=== PATIENT | female | born 1980 | race Caucasian/White ===

== ENCOUNTER 2017-01-12 19:37 | Emergency (ER) | payer OTHER ==
--- NOTE | 2017-01-12 20:42 | DIAGNOSTIC IMAGING REPORT ---
PROCEDURE: XR CHEST 1 VIEW INDICATION: CHEST PAIN TECHNIQUE: Single view chest. 2030 hours COMPARISON: None. FINDINGS: The cardiomediastinal contour and central vasculature are normal. The lungs are clear without focal consolidation, pleural effusion or pneumothorax. The osseous structures are intact. IMPRESSION: 1. No evidence of acute cardiopulmonary disease.
--- NOTE | 2017-01-12 22:15 | ED NURSING NOTES ---
Clinical Report - Nurses [facility] [place] [address] 01/12/2017 19:38 [id number] Triage time 19:45 Damion 2016. Acuity: LEVEL 3. Chief Complaint: CHEST PAIN. Alert. SEPSIS SCREEN: Sepsis Screen. Negative (no infection suspected/documented). RADHA COMA SCORE: [place] Coma Scale: 15- eyes open spontaneously (4); best verbal response- oriented x 4 (5); best motor response- obeys commands (6). --19:57 Rogerio Verma R.N. 19:46 01/12/17. BP: 131/78. HR: 97. RR: 16. O2 saturation: 99% on room air. Temp: 98.1 F. Pain level now: 6. --19:57 Rogerio Verma R.N. Weight: 69.8 kg stated. Height/Length: 62 inches Per Patient. BMI: 28.2. --19:47 Rogerio Verma R.N. Medications Theresa . --19:54 Rogerio Verma R.N. Allergies No Known Drug Allergy. --04:54 Rogerio Verma R.N. History Arrived by private vehicle. Historian: patient. Accompanied by friend. Primary physician (Cristina). ( Chest Pain 6/10 along the diaphragm. Pt states that her pain was 9/10 about 1 hour ago.). This started just prior to arrival and today. She has had difficulty breathing and nausea. Treatment MEDICAL CLAIMS PROCESSOR: None. PAST MEDICAL HX: Negative. Immunizations: status is unknown. Last normal menstrual period- about 9 years ago--pt has Theresa. Denies current . SURGERY HX: ( Gastric sleeve ~ 4 months ago). SOCIAL HX: Former smoker, end date 2011. Alcohol use; consumes wine weekly. No drug use. ABUSE ASSESSMENT: No report of abuse. FALL RISK ASSESSMENT: Fall risk assessment completed. No fall risk identified. NUTRITIONAL RISK ASSESSMENT: The nutritional risk assessment revealed no deficiencies. FUNCTIONAL ASSESSMENT: Functional assessment: no impairments noted. LEARNING NEEDS ASSESSMENT: The learning needs assessment revealed no barriers. SKIN INTEGRITY ASSESSMENT: Skin integrity risk assessment completed. No skin integrity risk identified. --19:57 Rogerio Verma R.N. PROBLEMS: no known problems. Interventions ID band on patient. To treatment room. --19:57 Rogerio Verma R.N. PHYSICAL ASSESSMENT Ambulatory to room. GENERAL / NEURO / PSYCH: Alert. Oriented X 4. Appears in pain. HEENT: Mucous membranes are pink. RESPIRATORY: Respirations not labored. Decreased breath sounds in the right upper lung posteriorly. CVS: Normal sinus rhythm noted. GI / : Abdomen soft. EXTREMITIES: No lower extremity edema. SKIN: Skin is warm and dry. Normal skin turgor. Skin is non-tender. --19:58 Rogerio Verma R.N. NURSING PROGRESS NOTES manager law, pulse oximeter and NIBP monitor placed on patient; improvement spec- Lead II and V1; monitor alarms on. Patient gowned. Reassurance given to the patient and patient's friends. Patient ready for evaluation- chart flagged and ED physician notified. --19:59 Rogerio Verma R.N. 19:50 01/12/2017 Site #1 started via IV in the left antecubital space with an 20g angiocath, with aseptic technique and good blood return; one attempt. Blood drawn: rainbow set. Labeled in the presence of the patient and sent to the lab. Saline lock flushed with 10 mL saline (start by ELAINE Zavala). --20:00 Rogerio Verma R.N. 20:04 01/12/2017 Aspirin PO Tablets 325 mg given. Allergies verified and confirmed 5 rights. --20:04 Rogerio Verma R.N. 20:04 01/12/2017 Nitroglycerin SL Tablets 0.4 mg given. Allergies verified and confirmed 5 rights. --20:04 Rogerio Verma R.N. Oxygen administered by nasal cannula at 2 liters. --20:20 Rogerio Verma R.N. ( Pt states only slight soreness presently so 2nd NTG SL held). --20:23 Rogerio Verma R.N. 20:24 01/12/17. BP: 109/60. HR: 74. RR: 16. O2 saturation: 100% on nasal cannula at 2 liters/minute. Pain level now: 08/23. --20:24 Rogerio Verma R.N. 22:23 01/12/2017 Site #1 removed upon discharge. Catheter intact. Manual pressure, bandaid and bandage applied. --04:53 Rogerio Verma R.N. DISPOSITION / DISCHARGE Departure time: 0. --04:43 Rogerio Verma R.N. 22:25 01/12/17. BP: 114/77. HR: 74. RR: 18. O2 saturation: 100% on room air. Temp: 98.3 F (oral). Pain level now: . --04:47 Rogerio Verma R.N. 22:30. Condition at departure: improved. No learning barriers present. Discharge instructions provided and reviewed with the patient. Reviewed medication(s) (continue your usually prescribed medications). Reviewed referral to family practice. Patient verbalized understanding. Written instructions provided in [place]. The patient was discharged by the physician. She was discharged home and accompanied by heating mechanic. She left the Emergency Department ambulatory and via private vehicle. Director Social Service driving. --04:50 Rogerio Verma R.N. Locked/Released at 01/13/2017 4:54 by Rogerio Verma R.N.
--- NOTE | 2017-01-12 22:15 | ED ORDER SUMMARY ---
..... Patient: MIKE CHAHAL OrderSheet [facility] VisitID: [id number] [place] [address] 36y, F Registration Date/Time: 01/12/2017 ORDER SHEET Weight: 69.8 kg (stated) Allergies: No Known Drug Allergy GENERAL ORDERS: Chest 1V Urgent (19:56 01/12/2017 Denisa CONNOLLY) (Ack 20:02 LMuller) (4:50 omanelli R.N.) Care Team Coordinator Scheduler (Continuous) (19:56 01/12/2017 Denisa CONNOLLY) (20:00 Kendra R.N.) Cardiac Panel Stat (:56 01/12/2017 Denisa CONNOLLY) (20:00 Kendra R.N.) BNP Urgent (19:56 01/12/2017 Denisa CONNOLLY) (20:00 Kendra R.N.) Oxygen (2 L/min) (NC) (:56 01/12/2017 Denisa CONNOLLY) (20:00 omansandy R.N.) Pulse oximeter (:56 01/12/2017 Denisa CONNOLLY) (20:00 Kendra R.N.) EKG - ER Stat (:56 01/12/2017 Denisa CONNOLLY) (20:00 Kendra R.N.) Chest 1V Urgent (19:57 01/12/2017 Denisa CONNOLLY) (19:59 omansandy R.N.) (Cancelled: Duplicate Order19:59 Kendra R.N.) MEDICATION ORDERS: Aspirin PO 325 mg (Do not crush or chew, NOW) (19:56 01/12/2017 Denisa CONNOLLY) (20:04 Kendra R.N.) NitroGLYCERIN SL 0.4 mg (x3 PRN Chest Pain) (19:57 01/12/2017 Denisa CONNOLLY) (20:04 Kendra R.N.) IV FLUIDS: IV Saline Lock (19:01/12/2017 Denisa CONNOLLY) (20:00 omanelli R.N.) ORDER SHEET NOTES: [Electronically signed by Rogerio Verma R.N. (04:54 01/13/2017)] [Electronically signed by Sophia Reyes MD (15:35 01/25/2017)] [Electronically locked/signed by Rogerio Verma R.N. (04:54 01/13/2017)]
--- NOTE | 2017-01-12 22:15 | ED NURSING NOTES ---
Clinical Report - Nurses [facility] [place] [address] 01/12/2017 19:38 [id number] Triage time 19:45 Damion 2016. Acuity: LEVEL 3. Chief Complaint: CHEST PAIN. Alert. SEPSIS SCREEN: Sepsis Screen. Negative (no infection suspected/documented). RADHA COMA SCORE: [place] Coma Scale: 15- eyes open spontaneously (4); best verbal response- oriented x 4 (5); best motor response- obeys commands (6). --19:57 Rogerio Verma R.N. 19:46 01/12/17. BP: 131/78. HR: 97. RR: 16. O2 saturation: 99% on room air. Temp: 98.1 F. Pain level now: 6. --19:57 Rogerio Verma R.N. Weight: 69.8 kg stated. Height/Length: 62 inches Per Patient. BMI: 28.2. --19:47 Rogerio Verma R.N. Medications Theresa . --19:54 Rogerio Verma R.N. Allergies No Known Drug Allergy. --04:54 Rogerio Verma R.N. History Arrived by private vehicle. Historian: patient. Accompanied by friend. Primary physician (Cristina). ( Chest Pain 6/10 along the diaphragm. Pt states that her pain was 9/10 about 1 hour ago.). This started just prior to arrival and today. She has had difficulty breathing and nausea. Treatment COMPUTER PERIPHERAL EQUIPMENT OPERATOR: None. PAST MEDICAL HX: Negative. Immunizations: status is unknown. Last normal menstrual period- about 9 years ago--pt has Theresa. Denies current . SURGERY HX: ( Gastric sleeve ~ 4 months ago). SOCIAL HX: Former smoker, end date 2011. Alcohol use; consumes wine weekly. No drug use. ABUSE ASSESSMENT: No report of abuse. FALL RISK ASSESSMENT: Fall risk assessment completed. No fall risk identified. NUTRITIONAL RISK ASSESSMENT: The nutritional risk assessment revealed no deficiencies. FUNCTIONAL ASSESSMENT: Functional assessment: no impairments noted. LEARNING NEEDS ASSESSMENT: The learning needs assessment revealed no barriers. SKIN INTEGRITY ASSESSMENT: Skin integrity risk assessment completed. No skin integrity risk identified. --19:57 Rogerio Verma R.N. PROBLEMS: no known problems. Interventions ID band on patient. To treatment room. --19:57 Rogerio Verma R.N. PHYSICAL ASSESSMENT Ambulatory to room. GENERAL / NEURO / PSYCH: Alert. Oriented X 4. Appears in pain. HEENT: Mucous membranes are pink. RESPIRATORY: Respirations not labored. Decreased breath sounds in the right upper lung posteriorly. CVS: Normal sinus rhythm noted. GI / : Abdomen soft. EXTREMITIES: No lower extremity edema. SKIN: Skin is warm and dry. Normal skin turgor. Skin is non-tender. --19:58 Rogerio Verma R.N. NURSING PROGRESS NOTES school lunch monitor, pulse oximeter and NIBP monitor placed on patient; director of cardiac cath lab- Lead II and V1; monitor alarms on. Patient gowned. Reassurance given to the patient and patient's friends. Patient ready for evaluation- chart flagged and ED physician notified. --19:59 Rogerio Verma R.N. 19:50 01/12/2017 Site #1 started via IV in the left antecubital space with an 20g angiocath, with aseptic technique and good blood return; one attempt. Blood drawn: rainbow set. Labeled in the presence of the patient and sent to the lab. Saline lock flushed with 10 mL saline (start by ELAINE Zavala). --20:00 Rogerio Verma R.N. 20:04 01/12/2017 Aspirin PO Tablets 325 mg given. Allergies verified and confirmed 5 rights. --20:04 Rogerio Verma R.N. 20:04 01/12/2017 Nitroglycerin SL Tablets 0.4 mg given. Allergies verified and confirmed 5 rights. --20:04 Rogerio Verma R.N. Oxygen administered by nasal cannula at 2 liters. --20:20 Rogerio Verma R.N. ( Pt states only slight soreness presently so 2nd NTG SL held). --20:23 Rogerio Verma R.N. 20:24 01/12/17. BP: 109/60. HR: 74. RR: 16. O2 saturation: 100% on nasal cannula at 2 liters/minute. Pain level now: 08/23. --20:24 Rogerio Verma R.N. 22:23 01/12/2017 Site #1 removed upon discharge. Catheter intact. Manual pressure, bandaid and bandage applied. --04:53 Rogerio Verma R.N. DISPOSITION / DISCHARGE Departure time: 0. --04:43 Rogerio Verma R.N. 22:25 01/12/17. BP: 114/77. HR: 74. RR: 18. O2 saturation: 100% on room air. Temp: 98.3 F (oral). Pain level now: . --04:47 Rogerio Verma R.N. 22:30. Condition at departure: improved. No learning barriers present. Discharge instructions provided and reviewed with the patient. Reviewed medication(s) (continue your usually prescribed medications). Reviewed referral to family practice. Patient verbalized understanding. Written instructions provided in [place]. The patient was discharged by the physician. She was discharged home and accompanied by director case management. She left the Emergency Department ambulatory and via private vehicle. Heel Attacher driving. --04:50 Rogerio Verma R.N. Locked/Released at 01/13/2017 4:54 by Rogerio Verma R.N.
--- NOTE | 2017-01-12 22:15 | ED ORDER SUMMARY ---
..... Patient: MIKE CHAHAL OrderSheet [facility] VisitID: [id number] [place] [address] 36y, F Registration Date/Time: 01/12/2017 ORDER SHEET Weight: 69.8 kg (stated) Allergies: No Known Drug Allergy GENERAL ORDERS: Chest 1V Urgent (19:56 01/12/2017 Denisa CONONLLY) (Ack 20:02 LMuller) (4:50 omanelli R.N.) Carpet Yarn Winder Operator (Continuous) (19:56 01/12/2017 Denisa CONNOLLY) (20:00 Kendra R.N.) Cardiac Panel Stat (:56 01/12/2017 Denisa CONNOLLY) (20:00 Kendra R.N.) BNP Urgent (19:56 01/12/2017 Denisa CONNOLLY) (20:00 Kendra R.N.) Oxygen (2 L/min) (NC) (:56 01/12/2017 Denisa OCNNOLLY) (20:00 omansandy R.N.) Pulse oximeter (:56 01/12/2017 Denisa CONNOLLY) (20:00 Kendra R.N.) EKG - ER Stat (:56 01/12/2017 Denisa CONNOLLY) (20:00 Kendra R.N.) Chest 1V Urgent (19:57 01/12/2017 Denisa CONNOLLY) (19:59 omansandy R.N.) (Cancelled: Duplicate Order19:59 Kendra R.N.) MEDICATION ORDERS: Aspirin PO 325 mg (Do not crush or chew, NOW) (19:56 01/12/2017 Denisa CONNOLLY) (20:04 Kendra R.N.) NitroGLYCERIN SL 0.4 mg (x3 PRN Chest Pain) (19:57 01/12/2017 Denisa CONNOLLY) (20:04 Kendra R.N.) IV FLUIDS: IV Saline Lock (19:01/12/2017 Denisa CONNOLLY) (20:00 omanelli R.N.) ORDER SHEET NOTES: [Electronically signed by Rogerio Verma R.N. (04:54 01/13/2017)] [Electronically signed by Sophia Reyes MD (15:35 01/25/2017)] [Electronically locked/signed by Rogerio Verma R.N. (04:54 01/13/2017)]
--- NOTE | 2017-01-12 22:15 | ED CLINICAL REPORT ---
Clinical Report - Physicians/Mid Levels [facility] [address] [place] [address] 01/12/2017 19:38 Patient: MIKE CHAHAL Time Seen: 19:55. Arrived- By private vehicle. Historian- patient. HISTORY OF PRESENT ILLNESS Chief Complaint: CHEST PAIN. At its maximum, severity described as moderate. When seen in the E.D., severity described as moderate. Modifying factors. Not worsened by anything. Not relieved by anything. It is described as "pain" and it is described as located in the central chest area and epigastric area. This started today and is still present. Onset during light activity. The patient has had mild difficulty breathing and nausea. No diaphoresis. Similar symptoms previously: Occasionally. Recent medical care: Not recently seen/assessed. REVIEW OF SYSTEMS No fever, chills, cough, pedal edema or calf pain. No abnormal bleeding, fainting episodes, headache, sore throat or blurred vision. No abdominal pain, black stools, difficulty with urination, skin rash or enlarged lymph nodes. No joint pain or bloody stools. All systems otherwise negative, except as recorded above. PAST HISTORY Problems: no known problems. Additional Surgeries: Gastric sleeve. Medications: Theresa . Allergies: No Known Drug Allergy. SOCIAL HISTORY Former smoker. Alcohol use. No drug use. FAMILY HISTORY Negative. ADDITIONAL NOTES The nursing notes have been reviewed. PHYSICAL EXAM Vital Signs: 01/12/2017 19:46 BP: 131/78. HR: 97. RR: 16. O2 saturation: 99%. Temp: 98.1 F. Pain level now: 6/10. Have been reviewed. Appearance: Alert. Oriented X3. No acute distress. Eyes: Pupils equal, round and reactive to light. Eyes normal inspection. ENT: Nose normal. Neck: Normal inspection. CVS: Normal heart rate and rhythm. Heart sounds normal. Pulses normal. Respiratory: No respiratory distress. Breath sounds normal. Abdomen: Soft. Mild tenderness in the epigastric area. Back: Normal external inspection. No CVA tenderness. Skin: Skin warm and dry. Normal skin color. No rash. Normal skin turgor. Extremities: Extremities exhibit normal ROM. No lower extremity edema. Neuro: (Grossly intact.). LABS, X-RAYS, AND EKG EKG: EKG time: (1952). No acute ischemia. Normal sinus rhythm. Rate: 84. Occasional wide-complex and ventricular ectopic beats. Premature ventricular contractions. Normal P waves. Normal ROSA MARIA. Normal QRS complex. Normal axis. Normal QT and QTc. Non-specific ST segment / T wave abnormalities. Prior EKG unavailable. The study has been interpreted contemporaneously by me. The study has been independently viewed by me. The EKG appears to be a good tracing. I agree with and confirm the computer reading of the EKG. Rhythm Strip #1: Time: (2099). Rate= 81. Normal sinus rhythm. Regular rhythm. Narrow QRS complexes. No ectopy. Conduction normal. Normal ST segments and T waves. The study was interpreted by me. Chest X-ray: No acute disease. Normal lung markings present. Normal heart size. Mediastinum normal. Great vessels normal. Soft tissues normal. No infiltrate. No fracture. No bony lesion present. Views: PA and lateral. Technique: good. The X-rays were independently viewed by me, interpreted by the radiologist and contemporaneously by me and discussed with the radiologist. Prior films were not available for comparison. Laboratory Tests: CBC w Diff: (CORNELIA: 01/12/2017 19:50) ( MsgRcvd 01/12/2017 20:19) Final results Test Result Flag Units (Reference) WHITE BLOOD COUNT 8.7 K/uL (4.5-11.5) RED BLOOD COUNT 4.35 M/uL (4.00-5.20) HEMOGLOBIN 13.1 gm/dL (12.0-16.0) HEMATOCRIT 39.3 % (36.0-46.0) MEAN CELL VOLUME 90 fL (80-100) MEAN CORPUSCULAR HGB 30 pg (26-34) MEAN CORPUSCULAR HGB CONC 33 g/dL (31-37) RED CELL DISTRIBUTION WIDTH 12.6 % (11.6-14.8) PLATELET COUNT 237 K/uL (150-400) NEUTROPHIL % 56.4 % (50-75) LYMPH % 36.9 % (25-40) MONO % 6.0 % (3-14) EOSINOPHIL % 0.6 % (0-4) BASOPHIL % 0.1 % (0-2) BNP: (CORNELIA: 01/12/2017 19:50) ( [facility] 01/12/2017 20:46) Final results Test Result Flag Units (Reference) B-TYPE NATRIURETIC PEPTIDE 8.9 pg/ml (5-100) CHEM 13 PANEL: (CORNELIA: 01/12/2017 19:50) ( [facility] 01/12/2017 20:30) Final results Test Result Flag Units (Reference) GLUCOSE 140 H mg/dL (70-110) BUN 16 mg/dL (7-18) CREATININE 0.8 mg/dL (0.6-1.3) Estimated GFR >60 mL/min Estimated GFR- >60 mL/min Note: Persistent reduction over 3 months in eGFR<60 mL/min/1.73 m2 defines CKD. Patients with eGFR values>=60 mL/min/1.73 m2 may also have CKD if evidence ofpersistent proteinuria. Additional information may be foundat www.kidney.org. SODIUM 143 mmol/L (136-145) POTASSIUM 3.7 mmol/L (3.5-5.1) CHLORIDE 107 mmol/L (98-107) CARBON DIOXIDE 25 mmol/L (21-32) CALCIUM 9.5 mg/dL (8.5-10.1) TOTAL PROTEIN 7.3 g/dL (6.4-8.2) ALBUMIN 4.0 g/dL (3.3-5.0) BILIRUBIN, TOTAL 0.4 mg/dL (0.0-1.0) ALKALINE PHOSPHATASE 65 U/L (46-116) AST (SGOT) 53 H U/L (15-37) ALT (SGPT) 35 U/L (12-78) CPK 44 U/L (24-260) MAGNESIUM 1.8 mg/dL (1.8-2.4) TROPONIN I <0.05 L ng/mL (0.00-1.5) TROPONIN REFERENCE RANGE:<0.1 NEGATIVE0.1-1.5 INDETERMINANT>1.5 POSITIVE . Pulse Oximetry: 01/12/2017 19:46 O2 saturation: 99%. (FIO2 - room air). Interpretation: normal. PROGRESS AND PROCEDURES Course of Care: 21:25 01/12/17. Care assumed by Dr Reyes due to change of shift. Pt is now pain free. / MD Eric Martinez note: Pt was signed out to me by off-going emergency physician, pending work-up for epigastric and chest pain. Pt was pain-free upon my assumption of care. She had already received ASA and a dose of NTG. Her work-up was negative, and pt was low-risk, overall. No emergent condition was identified. Patient counseled in person regarding the patient's stable condition, test results, diagnosis and need for follow-up. Concerns were addressed. Old medical records reviewed. MATEUSZ score: Score: 0 (5% risk at 14 days of all-cause mortality, new or recurrent [place], or severe recurrent ischemia requiring urgent revascularization). No MATEUSZ risks identified. Age less than 65 years. Less than 3 CAD risk factors. No known CAD (stenosis 50% or greater), ASA use in past 7 days, recent severe angina or ST deviation 0.5mm or greater. Negative cardiac markers. Wells clinical prediction rule (PE): No clinical symptoms of DVT, other diagnosis less likely than PE, immobilization or surgery within 4wks, previous DVT or PE or hemoptysis. No malignancy. Heart rate less than 100 per minute. Disposition: Discharged. Condition: stable and improved. CLINICAL IMPRESSION Chest pain characterized as "tightness" .12 lead EKG performed. INSTRUCTIONS (Your labs and x-ray and EKG all looked good. If you have any further episodes like this, you should speak with your primary care physician about having a stress test done. If you have further severe episodes you should return to the emergency department for further evaluation.). Warnings: Further evaluation is necessary. GENERAL WARNINGS: Return or contact your physician immediately if your condition worsens or changes unexpectedly, if not improving as expected, or if other problems arise. Your Current Medications: CONTINUE TAKING THE FOLLOWING MEDICATIONS: Theresa *. Follow-up: Follow up with your doctor. Call for the next available appointment. Reason for referral: Follow up ER visit for chest pain. Understanding of the discharge instructions verbalized by patient. (Electronically signed by Sophia Reyes MD 01/25/2017 15:35)
--- NOTE | 2017-01-25 15:35 | ED MED RECONCILIATION SUMMARY ---
Patient: MIKE CHAHAL Medication Reconciliation Report [facility] VisitID: [id number] [address] [place] [address] 36y, F Registration Date/Time: 01/12/2017 Weight: 69.8 kg Height/Length: 62 in. BMI: 28.2 ALLERGIES: No Known Drug Allergy The patient's Home Medications are listed below: CONTINUE TAKING THE FOLLOWING MEDICATIONS: Theresa The source(s) of the original Home Medication information: Not obtained. The following Medications were given to the patient in the Emergency Department: Aspirin [PO] PO 325 mg, administered: 01/12/2017 8:04:00 PM Nitroglycerin [SL] SL 0.4 mg, administered: 01/12/2017 8:04:00 PM The following Medications were prescribed to the patient: None.
--- NOTE | 2017-01-25 15:35 | ED DISCHARGE INSTRUCTIONS ---
Patient: MIKE CHAHAL General Instructions [facility] VisitID: [id number] [place] [address] 36y, F Registration Date/Time: 01/12/2017 Chest pain characterized as "tightness" .12 lead EKG performed. INSTRUCTIONS (Your labs and x-ray and EKG all looked good. If you have any further episodes like this, you should speak with your primary care physician about having a stress test done. If you have further severe episodes you should return to the emergency department for further evaluation.). Warnings: Further evaluation is necessary. GENERAL WARNINGS: Return or contact your physician immediately if your condition worsens or changes unexpectedly, if not improving as expected, or if other problems arise. Your Current Medications: CONTINUE TAKING THE FOLLOWING MEDICATIONS: Theresa *. Follow-up: Follow up with your doctor. Call for the next available appointment. Reason for referral: Follow up ER visit for chest pain. Understanding of the discharge instructions verbalized by patient. ADDITIONAL INFORMATION Chest Pain, Uncertain Cause Chest pain can happen for a number of reasons. Sometimes the cause can not be determined. If yourcondition does not seem serious, and your pain does not appear to be coming from your heart, your doctor may recommend watching it closely. Sometimes the signs of a serious problem take more time to appear. Therefore, watch for the warning signs listed below. Home care After your visit, follow these recommendations: Rest today and avoid strenuous activity. Take any prescribed medicine as directed. Follow-up care Follow up with your doctor or this facility as instructed or if you do not start to feel better within 24 hours. Call 911 Get immediate medical attention if any of the following occur: A change in the type of pain: if it feels different, becomes more severe, lasts longer, or begins to spread into your shoulder, arm, neck, jaw or back Shortness of breath or increased pain with breathing Weakness, dizziness, or fainting Rapid heart beat Get prompt medical attention Call your doctor right away if any of the following occur: Cough with dark colored sputum (phlegm) or blood Fever of 100.4F(38C) or higher, or as directed by your health care provider Swelling, pain or redness in one leg You have been given the following additional information: Chest Pain, Uncertain Cause (Electronically signed by Sophia Reyes MD 01/25/2017 15:35)
--- NOTE | 2017-01-25 15:35 | ED DISCHARGE INSTRUCTIONS ---
Patient: MIKE CHAHAL General Instructions [facility] VisitID: [id number] [place] [address] 36y, F Registration Date/Time: 01/12/2017 Chest pain characterized as "tightness" .12 lead EKG performed. INSTRUCTIONS (Your labs and x-ray and EKG all looked good. If you have any further episodes like this, you should speak with your primary care physician about having a stress test done. If you have further severe episodes you should return to the emergency department for further evaluation.). Warnings: Further evaluation is necessary. GENERAL WARNINGS: Return or contact your physician immediately if your condition worsens or changes unexpectedly, if not improving as expected, or if other problems arise. Your Current Medications: CONTINUE TAKING THE FOLLOWING MEDICATIONS: Theresa *. Follow-up: Follow up with your doctor. Call for the next available appointment. Reason for referral: Follow up ER visit for chest pain. Understanding of the discharge instructions verbalized by patient. ADDITIONAL INFORMATION Chest Pain, Uncertain Cause Chest pain can happen for a number of reasons. Sometimes the cause can not be determined. If yourcondition does not seem serious, and your pain does not appear to be coming from your heart, your doctor may recommend watching it closely. Sometimes the signs of a serious problem take more time to appear. Therefore, watch for the warning signs listed below. Home care After your visit, follow these recommendations: Rest today and avoid strenuous activity. Take any prescribed medicine as directed. Follow-up care Follow up with your doctor or this facility as instructed or if you do not start to feel better within 24 hours. Call 911 Get immediate medical attention if any of the following occur: A change in the type of pain: if it feels different, becomes more severe, lasts longer, or begins to spread into your shoulder, arm, neck, jaw or back Shortness of breath or increased pain with breathing Weakness, dizziness, or fainting Rapid heart beat Get prompt medical attention Call your doctor right away if any of the following occur: Cough with dark colored sputum (phlegm) or blood Fever of 100.4F(38C) or higher, or as directed by your health care provider Swelling, pain or redness in one leg You have been given the following additional information: Chest Pain, Uncertain Cause (Electronically signed by Sophia Reyes MD 01/25/2017 15:35)
--- NOTE | 2017-01-25 15:35 | ED MAR SUMMARY ---
..... Medication Administration Record [facility] [address] [place] [address] Patient: MIKE CHAHAL Visit ID: [id number] 36y, F Weight: 69.8 kg Height/Length: 62 in BMI: 28.2 ALLERGIES: No Known Drug Allergy Given 20:01/12/2017 Rogerio Verma, R.N. Medication Administered: ASPIRIN [PO], Dose: 325 mg Tablets PO. Medication Ordered: Aspirin PO 325 mg (Do not crush or chew, NOW). Given 20:01/12/2017 Rogerio Verma, R.N. Medication Administered: NITROGLYCERIN [SL], Dose: 0.4 mg Tablets SL. Medication Ordered: NitroGLYCERIN SL 0.4 mg (x3 PRN Chest Pain).
--- NOTE | 2017-01-25 15:35 | ED MAR SUMMARY ---
..... Medication Administration Record [facility] [address] [place] [address] Patient: MIKE CHAHAL Visit ID: [id number] 36y, F Weight: 69.8 kg Height/Length: 62 in BMI: 28.2 ALLERGIES: No Known Drug Allergy Given 20:01/12/2017 Rogerio Verma, R.N. Medication Administered: ASPIRIN [PO], Dose: 325 mg Tablets PO. Medication Ordered: Aspirin PO 325 mg (Do not crush or chew, NOW). Given 20:01/12/2017 Rogerio Verma, R.N. Medication Administered: NITROGLYCERIN [SL], Dose: 0.4 mg Tablets SL. Medication Ordered: NitroGLYCERIN SL 0.4 mg (x3 PRN Chest Pain).
--- NOTE | 2017-01-25 15:35 | ED MED RECONCILIATION SUMMARY ---
Patient: MIKE CHAHAL Medication Reconciliation Report [facility] VisitID: [id number] [address] [place] [address] 36y, F Registration Date/Time: 01/12/2017 Weight: 69.8 kg Height/Length: 62 in. BMI: 28.2 ALLERGIES: No Known Drug Allergy The patient's Home Medications are listed below: CONTINUE TAKING THE FOLLOWING MEDICATIONS: Theresa The source(s) of the original Home Medication information: Not obtained. The following Medications were given to the patient in the Emergency Department: Aspirin [PO] PO 325 mg, administered: 01/12/2017 8:04:00 PM Nitroglycerin [SL] SL 0.4 mg, administered: 01/12/2017 8:04:00 PM The following Medications were prescribed to the patient: None.
== END 2017-01-12 22:30 | disposition home or self-care (01) ==
LOC: ED SRH 19:37
DX: R07.89 Other chest pain (principal)
CPT/HCPCS: 90100; 90616; 91320; 92610; 92720; 95059